=== PATIENT | female | born 1995 | race Two or more races ===

== ENCOUNTER 2024-10-09 23:04 | Inpatient (IN) | payer BC, OTHER ==
[~2024-10-09] VITALS: Ht 157.5 cm; Wt 112.9 kg
[2024-10-09] MEDS ORDERED: NALBUPHINE HCL 10 MG/1ml INJECTION IM PRN (23:30)
[2024-10-09] MEDS ORDERED: LIDOCAINE 2%HCL (LOCAL ANESTH.) INJ 20ML MDV IJ PRN (23:30)
[2024-10-10 00:16] LABS: Basophils # (auto) 0.1 10 ^3/uL (0-0.2); Basophils % (auto) 0.8 % (0.0-2.0); Eosinophils # (auto) 0 10 ^3/uL (0-0.8); Eosinophils % (auto) 0.4 % (0.0-7.0); Hematocrit 37.3 % (36.0-46.0); Hemoglobin 12.5 g/dL (12.2-16.2); Lymphocytes # (auto) 2.3 10 ^3/uL (0.4-5.4); Lymphocytes % (auto) 27.2 % (10.0-50.0); Mean Corpuscular Hemoglobin 29.4 pg (28.0-32.0); Mean Corpuscular Hgb Conc. 33.7 g/dL (32.0-36.0); Mean Corpuscular Volume 87.4 fL (80.0-100.0); Monocytes # (auto) 0.6 10 ^3/uL (0-1.3); Monocytes % (auto) 6.6 % (0.0-12.0); Neutrophils # (auto) 5.5 10 ^3/uL (1.6-8.6); Platelet Count (auto) 263 10^3/uL (140-450); Red Blood Cells 4.27 10^6/uL (4.0-5.20); Red Cell Distribution Width 14.7 % (11.8-14.3); White Blood Cell 8.4 10^3/uL (4.4-10.8)
[2024-10-10 00:35] LABS: Albumin 4.1 g/dL (3.2-4.8); Alkaline Phosphatase 171 U/L (46-116); Anion Gap 9 (5-15); Aspartate Aminotransferase 15 U/L (13-40); Bilirubin, Total 0.3 mg/dL (0.2-1.0); Calcium 9.4 mg/dL (8.7-10.4); Carbon Dioxide 22 mmol/L (20-31); Chloride 106 mmol/L (98-107); Glucose 101 mg/dL (74-106); INR 0.88 (0.9-1.15); Partial Thromboplastin Time 24.5 SEC (24.5-34.5); Potassium 3.7 mmol/L (3.5-5.1); Prothrombin Time 9.4 sec (9.3-11.8); Sodium 137 mmol/L (136-145); Total Protein 6.8 g/dL (5.7-8.2)
[2024-10-10 00:36] LABS: Alanine Aminotransferase < 9 U/L (7-40); BUN/Creatinine Ratio 11.6 (10.0-20.0); Blood Urea Nitrogen < 5 mg/dL (9-23)
[2024-10-10 00:49] LABS: Urine Bacteria None Seen /hpf (None Seen)
[2024-10-10] MEDS: LACTATED RINGER'S 1,000 ML IV SCH (00:58)
[2024-10-10 01:08] LABS: Urine Blood Negative /uL (Negative); Urine Clarity Clear (Clear); Urine Color Yellow (Yellow); Urine Mucus FEW (None Seen); Urine Protein, UAD 1+ (Negative); Urine Specific Gravity 1.031 (1.001-1.035); Urine Squamous Epithelial Cell FEW /hpf (<5); Urine Urobilinogen 2 mg/dL (Negative); Urine WBC 2 /hpf (0 - 5)
[2024-10-10] MEDS ORDERED: LIDOCAINE HCL 2 %PF INJ 10ML AMP IJ ONE (01:15)
[2024-10-10] MEDS ORDERED: NALOXONE HCL 0.4 MG/ML VIAL IV ONE (01:15)
[2024-10-10] MEDS ORDERED: ePHEDrine SULFATE 50 MG/ML AMP IV ONE (01:15)
[2024-10-10 01:34] LABS: Amphetamine Screen, Urine Neg (NEGATIVE); Barbiturate Scree,Urine Neg (NEGATIVE); Benzodiazephine Screen, Urine Neg (NEGATIVE)
[2024-10-10 01:35] LABS: Cannabinoid Screen, Urine Neg (NEGATIVE); Cocaine Screen, Urine Neg (NEGATIVE); Opiate Scree,Urine Neg (NEGATIVE); Phencyclidine Screen, Urine Neg (NEGATIVE)
[2024-10-10] MEDS: fentaNYL CITRATE 100 MCG/2 ML VL IV ONE (02:17)
--- NOTE | 2024-10-10 02:17 | EPIDURAL ---
Anesthesia Procedural Note - Epidural Informed consent obtained?: Yes Sterile prept drape: Yes Spinal level of insertion: L4-L5 Test dose of lidocaine & Epine: Negative Infusion started: Yes Start time: 01:40 End time: 20:00 Procedure description Procedure description: Called for labor analgesia. History taken, chart reviewed, patient examined at 0140. Patient is at 37+5 weeks gestation here in spontaneous labor, requesting epidural. Informed consent for CSE obtained. Sitting position, sterile prep and drape. Time out done at 0143 (BP 106/66 HR 98 spO2 99). L4-5 space infiltrated with 1% lido. Epidural needle placed with KEVIN at 7cm. 25G spinal needle +clear CSF. 20 mcg fentanyl give IT at 0146 (BP 111/56 HR 87 spO2 99). Epidural catheter secured at 11cm. Aspiration and test dose (3cc 1.5% lido with epi) negative at 0149 (BP 107/58 HR 90 spO2 299). 80mg fentanyl given via epidural. Patient reports pain relief (BP 106/56 HR 90 spO2 99). 0.2% ropivacaine infusion started at 0200 (BP 100/58 HR 92 spO2 99). Will follow as needed. GURMEET CONDE MD Oct 10, 2024 02:17
[2024-10-10] MEDS: ROPIVACAINE HCL 200 ML ONE (02:18)
[2024-10-10] MEDS: LACTATED RINGER'S 1,000 ML IV ONE (02:18)
[2024-10-10] MEDS: PHISODERM TOP SOLN 240ML BTL TOP PRN (02:19)
[2024-10-10] MEDS: DERMOPLAST 60ML BOTTLE TOP PRN (02:19)
[2024-10-10] MEDS: WITCH HAZEL-GLYCERIN PAD TOP PRN (02:19)
[2024-10-10] MEDS: LACT. RINGERS/OXYTOCIN 20UNITS 500 ML IV ONE ×2 (05:00→06:40)
--- NOTE | 2024-10-10 05:05 | LDN2 ---
Labor and Delivery Note Date 10/10/24 Age 29 3 Para 3 EGA 37.3 Diagnosis Spontaneous labor, Vaginal Delivery: VTX Vacuum Assisted: No Placenta: Spontaneous Sex: Male Weight Pending Apgars 8/9 Amniotic Fluid: Clear Anesthesia Epidural Episiotomy: No Repaired with N/A NO lacerations EBL 100 mL Labs Blood Bank 10/09/24 23:45: Blood Type B POSITIVE Complications None Comments/Significant Med Valery Normal Uncomplicated Doing well SAMEERA REAGAN DO Oct 10, 2024 05:05
--- NOTE | 2024-10-10 05:10 | DVHHP2 ---
OB CC & HPI Date Date of Admission: Oct 10, 2024 Patient Identification: : 3 Para: 2 EDC: Oct 28, 2024 EGA: 37.3 Chief Complaints: Reason for admission: active labor History of Present Complaints Labor pains, 5cm dilation on admission contractions every 2-3 mins Membranes intact GBS neg Past Medical History Cardiac: No pertinent Hx Pulmonary: No pertinent Hx Central Nervous System: No pertinent Hx GI: No pertinent Hx Hemotology/Oncology: No pertinent Hx Hepatobiliary: No pertinent Hx Psychiatric: No pertinent Hx Musculoskeletal: No pertinent Hx Rheumotologic: No pertinent Hx Infectious Disease: No peritnent Hx ENT: No pertinent Hx Renal/: No pertinent Hx Endocrine: No pertinent Hx Dermatology: No pertinent Hx Past Surgical History: No pertinent Hx OB History OB History Care: Good Care Ultrasounds: Normal mid trimester US Obstetrical Complications: None Medical Complications: None Allergies: Coded Allergies: NO KNOWN ALLERGIES (Unverified , 10/09/24) Current Medications Current Medications Medications (Trade) Dose Ordered Sig/[place] Route PRN Reason Start Time Stop Time Status Last Admin Lactated Ringer's 1,000 ml @ 125 mls/hr Q8H IV 10/09/24 23:30 10/10/24 00:58 Nalbuphine HCl (Nubain) 10 mg Q4HP PRN IM MODERATE PAIN (4-6 PAIN SCALE) 10/09/24 23:30 Witch Liyah (Tucks) 1 pad PRN PRN TOP PERINEAL AREA DISCOMFORT 10/09/24 23:30 10/10/24 02:19 Sodium Lauryl Sulfate (Phisoderm) 240 ml PRN PRN TOP PERINEAL AREA DISCOMFORT 10/09/24 23:30 10/10/24 02:19 Benzocaine (Dermoplast) 1 applic PRN PRN TOP PERINEAL AREA DISCOMFORT 10/09/24 23:30 10/10/24 02:19 Lidocaine HCl (Xylocaine) 20 ml ONCE PRN IJ PERINEAL AREA DISCOMFORT 10/09/24 23:30 Family & Social History Family/Social History Blood Type: B+ Rubella: not immune RPR/VDRL: Negative GBS Status: Negative HBsAG: Negative Review of Systems Constitutional: No symptom reported Ears, Nose, & Throat: No symptom reported Eyes: No symptom reported Pulmonary/Respiratory: No symptom reported Cardiovascular: No symptom reported Gastrointestinal: No symptom reported Genitourinary: No symptom reported Musculoskeletal: No symptom reported Skin: No symptom reported Psychiatric: No symptom reported Endocrine: No symptom reported Hemotologic/Lymphatic: No symptom reported OB Admission Exam Physical Exam Vitals: Vital Signs Date Time Temp Pulse Resp B/P (MAP) Pulse Ox O2 Delivery O2 Flow Rate FiO2 10/10/24 02:17 137/78 HEENT: TMs Normal, Fontanelles Normal, Nasal Mucosa Normal, Eyes non-injected, Oropharynx Normal, PERRLA, Moist Membranes, EOMI Heart: Rhythm Normal Lungs: Clear Abdomen: Non tender Extremities: Normal Reflexes: Normal Cervical Dilatation: 5cm Effacement: 75% Station: -2 Membranes: Intact Heart Rate: 130's Accelerations: Accelerations Present Decelerations: No Decelerations Short Term Variability: Present Group Home Variability: Average (6-25) Contractions on Admission: < 5 Minutes Apart Intensity: Moderate OB Plan Plan Admitting Diagnosis: Early Term IUP 37.3 wk, Active labor GBS neg Morbid Maternal Obesity Plan: Expectant Management Other Plan: Admit for labor and delivery Anticipated Patient requesting labor epidural for pain control. SAMEERA REAGAN DO Oct 10, 2024 05:10
[2024-10-10] MEDS ORDERED: ONDANSETRON ODT 4 MG TAB PO PRN (05:45)
[2024-10-10] MEDS: IBUPROFEN 600 MG TAB PO PRN (06:27)
[2024-10-10 07:30] VITALS: PULSE 70; RESP 16; TEMP 98.5; O2SAT 99
[2024-10-10] MEDS: ACETAMINOPHEN 325 MG TAB PO PRN (08:38)
--- NOTE | 2024-10-10 09:29 | DVHINCON2 ---
Date of Service if different f: Oct 10, 2024 Time of Service: 09:06 Consultation ([facility]) Consulting Physician: CRISSY CARD MD Labs Laboratory Tests Test 10/09/24 23:45 10/10/24 00:30 White Blood Count 8.4 10^3/uL (4.4-10.8) Red Blood Count 4.27 10^6/uL (4.0-5.20) Hemoglobin 12.5 g/dL (12.2-16.2) Hematocrit 37.3 % (36.0-46.0) Mean Corpuscular Volume 87.4 fL (80.0-100.0) Mean Corpuscular Hemoglobin 29.4 pg (28.0-32.0) Mean Corpuscular Hemoglobin Concent 33.7 g/dL (32.0-36.0) Red Cell Distribution Width 14.7 % (11.8-14.3) Platelet Count 263 10^3/uL (140-450) Mean Platelet Volume 8.7 fL (6.9-10.8) Neutrophils (%) (Auto) 65.0 % (37.0-80.0) Lymphocytes (%) (Auto) 27.2 % (10.0-50.0) Monocytes (%) (Auto) 6.6 % (0.0-12.0) Eosinophils (%) (Auto) 0.4 % (0.0-7.0) Basophils (%) (Auto) 0.8 % (0.0-2.0) Neutrophils # (Auto) 5.5 10 ^3/uL (1.6-8.6) Lymphocytes # (Auto) 2.3 10 ^3/uL (0.4-5.4) Monocytes # (Auto) 0.6 10 ^3/uL (0-1.3) Eosinophils # (Auto) 0 10 ^3/uL (0-0.8) Basophils # (Auto) 0.1 10 ^3/uL (0-0.2) Nucleated Red Blood Cells 0.0 % Prothrombin Time 9.4 sec (9.3-11.8) Prothromb Time International Ratio 0.88 (0.9-1.15) Activated Partial Thromboplast Time 24.5 SEC (24.5-34.5) Sodium Level 137 mmol/L (136-145) Potassium Level 3.7 mmol/L (3.5-5.1) Chloride Level 106 mmol/L (98-107) Carbon Dioxide Level 22 mmol/L (20-31) Anion Gap 9 (5-15) Blood Urea Nitrogen < 5 mg/dL (9-23) Creatinine 0.43 mg/dL (0.550-1.02) Glomerular Filtration Rate Calc 134 mL/min (>90) BUN/Creatinine Ratio 11.6 (10.0-20.0) Serum Glucose 101 mg/dL (74-106) Calcium Level 9.4 mg/dL (8.7-10.4) Total Bilirubin 0.3 mg/dL (0.2-1.0) Aspartate Amino Transf (AST/SGOT) 15 U/L (13-40) Alanine Aminotransferase (ALT/SGPT) < 9 U/L (7-40) Alkaline Phosphatase 171 U/L (46-116) Total Protein 6.8 g/dL (5.7-8.2) Albumin 4.1 g/dL (3.2-4.8) Hepatitis C Antibody Negative (Negative) Urine Color Yellow (Yellow) Urine Clarity Clear (Clear) Urine pH 6.0 (5.0-9.0) Urine Specific [place] 1.031 (1.001-1.035) Urine Protein 1+ (Negative) Urine Ketones 1+ (Negative) Urine Blood Negative /uL (Negative) Urine Nitrite Negative (Negative) Urine Bilirubin Negative (Negative) Urine Urobilinogen 2 mg/dL (Negative) Urine Leukocyte Esterase 1+ /uL (Negative) Urine RBC 2 /hpf (0 - 4) Urine WBC 2 /hpf (0 - 5) Urine Squamous Epithelial Cells Few /hpf (<5) Urine Bacteria None seen /hpf (None Seen) Urine Mucus Few (None Seen) Urine Glucose Normal mg/dL (Normal) Urine Opiates Screen Neg (NEGATIVE) Urine Fentanyl Screen Neg (NEGATIVE) Urine Barbiturates Screen Neg (NEGATIVE) Urine Phencyclidine Screen Neg (NEGATIVE) Urine Amphetamines Screen Neg (NEGATIVE) Urine Benzodiazepines Screen Neg (NEGATIVE) Urine Cocaine Screen Neg (NEGATIVE) Urine Cannabinoids Screen Neg (NEGATIVE) Appearance: Stated age Psychomotor activity: WNL, Calm Behavioral: Cooperative Eye contact: Appropriate Speech: WNL Affect: Appropriate, Mood Congruent Mood: Euthymic Thought processes: Linear/Goal-directed Thought content: WNL Suicidal ideations: Absent Homicidal ideations: Absent Orientation: Person, Place, Time, Situation Memory intact: Recent Intellect: Average Abstractability: WNL Concentration: Adequate Attention: Adequate Judgement: WNL Insight: Good Vitals Vital Signs Date Time Temp Pulse Resp B/P (MAP) Pulse Ox O2 Delivery O2 Flow Rate FiO2 10/10/24 07:30 98.5 70 16 99 98.5 10/10/24 07:00 Room Air 10/10/24 02:17 137/78 Current medications Current Medications Medications Dose Ordered Sig/[place] Route Start Time Stop Time Status Last Admin Dose Admin Ibuprofen 600 mg Q6HP PRN PO 10/10/24 05:45 10/10/24 06:27 600 MG Acetaminophen 650 mg Q4HP PRN PO 10/10/24 05:45 10/10/24 08:38 650 MG Ondansetron HCl 4 mg Q4HPRN PRN PO 10/10/24 05:45 Docusate Sodium 200 mg HS PO 10/10/24 22:00 Treatment plan discussed: With staff Medication adjusted: No Labs ordered: No Psychotherapy provided: Yes Type: Voluntary History of Present Illness Reason for Consult : psychiatric evaluation for elevated [place] Depression Scale. PSYCHIATRIST HPI: The patient was seen and evaluated at [facility] via telepsychiatry platform. 29 yr old female delivered third child via yesterday and scored 17 on EPDS. She noted the was planned. She said the had a lot of pain over her body which was unlike the other two pregnancies. She noted her mood has been sometimes good and sometimes bad lately. She denied having any suicidal ideation, plan or intent. She reported she saw a mental health practitioner last week who referred her to a therapist. She stated she also has a followup with the practitioner and will discuss medications with her at her next appointment. She does not want to start zoloft or other medications at this time, but plans to see how things go and talk with her outpatient provider about it. She stated she plans to breast feed and bottle feed and plans to have her help with nighttime feedings to help with her sleep. She denied having suicidal and homicidal ideation and auditory and visual hallucinations. Past Psychiatric History : No hospitalizations, treatment or suicide attempts. Diagnosed with depression after 8 yr old which lasted about 1.5 yrs. She was on zoloft then which she wasn't taking regularly. Past Medical History: none Current medications: None NKDA Substance use: Denied alcohol and other substance use. Social History : Lives in [place] with , mother and children (9 yr old, 7 yr old, ). Unemployed. Diagnosis: R/O Post Depression Formulation: This 29 yr old female appears to suffer from She is not suicidal and does not appear to be a harm to herself or her infant. She may benefit from following up with her outpatient mental health prescriber and therapist. Plan: 1. The patient is psychologically cleared for discharge. 2. Legal-voluntary. 3. Medications: She does not desire to start an SSRI at this time, but plans to discuss this with her outpatient mental health provider based on how her mood is going forward. 4. Follow up with outpatient mental health for medication management and therapy . If depression ensues in the near future, she may benefit from starting zoloft. 5. Please contact psychiatry if further follow up or reevaluation is desired. 6. Case discussed with LALA Delgadillo. Assessment/Diagnosis/Plan Reviewed: Labs, Medications, Previous Orders CRISSY CARD MD Oct 10, 2024 09:28
[2024-10-10 10:45] VITALS: BP 138/74; PULSE 80; RESP 16; TEMP 98.3; O2SAT 97
[2024-10-10] MEDS: HYDROcodone-ACET 10/325MG TAB PO PRN (11:04)
[2024-10-10 15:26] VITALS: BP 126/67; PULSE 83; RESP 16; TEMP 98.2; O2SAT 97
[2024-10-10 19:05] VITALS: BP 128/72; PULSE 78; RESP 17; TEMP 98.3; O2SAT 96
[2024-10-10] MEDS: DOCUSATE SOD 100 MG CAP PO SCH (21:49)
[2024-10-10 23:10] VITALS: BP 123/60; PULSE 88; RESP 18; TEMP 98.2; O2SAT 97
[2024-10-11 02:52] VITALS: BP 115/68; PULSE 83; RESP 15; TEMP 97.8; O2SAT 95
--- NOTE | 2024-10-11 04:32 | DVHPN2 ---
Chief Complaints Patient reports: No new complaints (Coping well. Denies any sx. Ambulates and voids well. Breast feeds well. Eating well. EPDS score high, had psych consult and cleared to go home. Currently denies suicidal or homicidal ideation. Encouraged to stay until tomorrow but insists on going home. States she misses her other children (ages 9 and 7) and would be happier being home with them. Her and her mom with be there to help her. She states that she had PPD with her previous child, took zoloft at the time and knows the symptoms to watch out for. She agrees to start Zoloft pending her psych appt.) Nursing reports: No new complaints Objective Vitals Vital Signs Date Time Temp Pulse Resp B/P (MAP) Pulse Ox O2 Delivery O2 Flow Rate FiO2 10/11/24 02:52 97.8 83 15 115/68 (84) 95 97.8 10/10/24 19:05 Room Air Medications Current Medications Medications (Trade) Dose Ordered Sig/[place] Route PRN Reason Start Time Stop Time Status Last Admin Acetaminophen (Tylenol Tablet) 650 mg Q4HP PRN PO MILD PAIN (1-3 PAIN SCALE) 10/10/24 05:45 10/10/24 08:38 Acetaminophen/ Hydrocodone Bitart ([place] 10/325MG Tab) 1 tab Q4HP PRN PO MODERATE PAIN (4-6 PAIN SCALE) 10/10/24 11:00 Acetaminophen/ Hydrocodone Bitart ([place] 10/325MG Tab) 2 tab Q4HP PRN PO SEVERE PAIN (7-10 PAIN SCALE) 10/10/24 11:00 10/10/24 17:49 Docusate Sodium (Colace Capsule) 200 mg HS PO 10/10/24 22:00 10/10/24 21:49 Ibuprofen (Motrin Tablet) 600 mg Q6HP PRN PO MODERATE PAIN (4-6 PAIN SCALE) 10/10/24 05:45 10/10/24 21:49 Ondansetron HCl (Zofran Po) 4 mg Q4HPRN PRN PO NAUSEA / VOMITING 10/10/24 05:45 General: Normal Lungs: Normal, Normal breath sounds, Lungs clear Cardiovascular: Normal, Regular rate and rhythm Abdominal: Normal (Fundus firm, 1fb below umbilicus, non tender) Musculoskeletal: Normal Extremities: Normal (Pascual's neg) Skin: Normal Others Breasts soft, nipples intact Perineum without edema, lochia minimal, no odor Studies Laboratory Tests 10/09/24 23:45 Test 10/09/24 23:45 Range/Units Serum Glucose 101 74-106 mg/dL Ass/Plan Assessment 1st PP day High EPDS score Previous h/o of PPD Desires to go home Plan D/c home with instructions Zoloft 50mgs PO daily Keep appt with psych as scheduled RTC 3-5 days and PRN DIANA GOOD CNM Oct 11, 2024 04:32
[2024-10-11] MEDS ORDERED: IBU600T PO (04:38)
[2024-10-11] MEDS ORDERED: TUCKS TOP (04:38)
[2024-10-11] MEDS ORDERED: SERT50TA PO (04:38)
[2024-10-11] MEDS ORDERED: [UNRECOGNIZED DRUG - CODE] EXT (04:38)
--- NOTE | 2024-10-11 04:41 | DVHDS2 ---
Obstetrics Discharge Summary Obstetrics Discharge Summary Date of Admission: Oct 10, 2024 Date of Discharge: Oct 11, 2024 Reason For Admission: Onset of Labor Procedures: None Intrapartum Procedures: Spontaneous vaginal deliv Procedures: None Operative Complicat: None Discharge Diagnosis: Term -Delivered Discharge Information: Activity (Pelvic rest), Diet (Regular), Medications (Motrin, Zoloft, Dermoplast, Tucks), Instructions (Routine), Discharge to (Home) DIANA GOOD CNM Oct 11, 2024 04:41
[2024-10-11] MEDS: HYDROcodone-ACET 10/325MG TAB PO PRN (04:47)
[2024-10-11 07:00] VITALS: BP 125/71; PULSE 85; RESP 16; TEMP 98.4; O2SAT 96
[2024-10-11 07:06] LABS: RPR Non Reactive (Non Reactive)
[2024-10-11 08:01] VITALS: TEMP 98.4
[2024-10-11] MEDS: MEASLES, MUMPS & RUBELLA VAC(MMRII) 0.5ML SC ONE (10:41)
[2024-10-13 11:07] LABS: Treponema Pallidum Ab LC Non Reactive (Non Reactive)
== END 2024-10-11 10:50 | disposition home or self-care (01) | DRG 807 ==
LOC: LDRP 23:04 → OBSVTOIN 23:47 → LDRP 23:48
PROVIDERS: ADMIT Obstetrics & Gynecology; ATTEND Obstetrics & Gynecology
PROC: 10E0XZZ Delivery of Products of Conception, External Approach (ICD-10-PCS; principal; 2024-10-10)
PROC: 3E0R3BZ Introduction of Anesthetic Agent into Spinal Canal, Percutaneous Approach (ICD-10-PCS; 2024-10-10)
PROC: 00HU33Z Insertion of Infusion Device into Spinal Canal, Percutaneous Approach (ICD-10-PCS; 2024-10-10)
DX: O99.214 Obesity complicating childbirth (principal); Z37.0 Single live birth; E66.01 Morbid (severe) obesity due to excess calories; Z3A.37 37 weeks gestation of pregnancy
CPT/HCPCS: 36415; 59025; 59409; 62282; 80053; 80307; 81001; 81002; 85025; 85610; 85730; 86592; 86780; 86803; 86850; 86900; 86901; 94760; 96360; 96361; 96365; 96366; 96372; G0378; J2590